=== PATIENT | female | born 1995 | race Two or more races ===

== ENCOUNTER 2020-06-01 21:18 | Emergency (ER) | payer OTHER, SELFPAY ==
[2020-06-01 21:35] VITALS: BP 111/71; PULSE 100; RESP 16; TEMP 37.7; O2SAT 100; BMI 19.5
[2020-06-01 22:00] VITALS: BP 117/62; PULSE 100; RESP 18; TEMP 36.4; O2SAT 100
[2020-06-01 22:20] LABS: COVID-19 Test Negative (Negative)
[2020-06-01] MEDS: Ketorolac Tromethamine 30 MG/ML VIAL IM (22:45)
--- NOTE | 2020-06-01 22:45 | ED.GENADULT ---
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 Reports was coughing so hard she bent over in threw back out, now with back spasming radiating to left side with left arm and leg spasming. Admits to similar symptoms in the past in which she received IM injection which resolved pain. Denies chest pain, shortness of breath, COVID-19 exposure, recent travel, direct back injury/trauma or fall, numbness, tingling, weakness, urinary incontinence/retention Related Data Previous Rx's Medication Instructions Recorded acetaminophen [Tylenol Extra 500 mg PO Q6H PRN #20 tab 06/01/20 Strength] cyclobenzaprine 5 mg PO Q8H PRN 5 Days #14 tab 06/01/20 lidocaine [Lidoderm] 1 patch TOPICAL DAILY PRN #30 ea 06/01/20 MDD remove after 12 hours naproxen 500 mg PO BID PRN 10 Days #20 tab 06/01/20 Allergies Allergy/AdvReac Type Severity Reaction Status Date / Time No Known Allergies Allergy Unverified 11/16/19 19:33 [No Known Allergies*] Review of Systems Review of Systems: Constitutional: No Fever, No Chills Cardiovascular: No Chest Pain, No SOB Respiratory: + Cough, No Sputum, No Wheezing Gastrointestinal: No Nausea, No Vomiting, No Diarrhea, No Abdominal pain Genitourinary: No Urinary Incontinence/retention Musculoskeletal: + back pain, + Myalgias, + Joint Swelling Skin: No Skin Lesions, No rash Neuro: No Weakness, No Numbness, No Paresthesias Yes all other systems are reviewed and are negative Neurologic: Denies Sensory deficit (Neuro) [facility] Past Medical History Attestation statement: The following information was validated with the patient. Social History Social History Advance Directives: No Physical Exam Vital Signs: Vital Signs: Last Vital Signs Temp 97.6 F 06/01/20 22:00 Pulse 100 06/01/20 22:00 Resp 18 06/01/20 22:00 BP 117/62 06/01/20 22:00 Pulse Ox 100 06/01/20 22:00 Body Mass Index 19.5 Const: General: cooperative and healthy appearing Orientation/consciousness: patient oriented x3 Limitations: no limitations HENMT: Head: Yes normal to inspection Ears: hearing grossly normal bilaterally General nose exam: Normal external nose present Face and sinus: Yes normal facial exam Eyes: General: appearance normal, both eyes and all related structures EOM: EOMs intact bilaterally Neck: Neck: Yes normal visual inspection Resp: Effort & Inspection: normal respiratory effort Cardio: Rate: regular rate GI: Inspection: Yes normal to inspection Palpation (GI): Soft to palpation, nontender, no guarding and not rigid Back/Spine/Pelvis: Other: No midline thoracic/lumbar spinous tenderness or step-off. + left-sided thoracic and lumbar MSK tenderness to palpation. Skin: Rashes: no rashes Wounds: no wounds Neuro: Other: Diffuse muscle tenderness to palpation to left elbow and thigh, reproducing subjective complaint. No appreciable weakness. No saddle anesthesia. 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 Reports was coughing so hard she bent over in threw back out, now with back spasming radiating to left side with left arm and leg spasming. On exam VSS, NAD/nontoxic-appearing, physical exam as above. Left-sided muscle spasming elicited and reproducible, no midline spinous tenderness or red flag symptoms, no saddle anesthesia. Likely MSK pain/strain. R/o viral syndrome/COVID-19. Unlikely cauda equina/cord compression, pneumonia, ACS, or CVA/metabolic abnormalities Patient requesting IM Toradol injection Lab Data Labs: Lab Results 06/01/20 Range/Units 21:59 COVID-19 ([facility]) Negative (Negative) COVID-19 Clin Com See Note Discharge Plan Discharge Clinical Impression: Low back pain Patient Disposition: Home, Self-Care Instructions: Acute Low Back Pain (ED) Additional Instructions: Your COVID-19 was negative Follow up with her doctor Your pain is likely musculoskeletal Flexeril is a muscle relaxer, take at night as it makes you drowsy, do not drive, drink alcohol, or operate machinery while taking it Naproxen as an anti-inflammatory / pain medication, take with food Lidoderm patches are numbing patches, apply to painful area In addition take Tylenol at home If symptoms persist or worsen, pain becomes unbearable, you developed urinary retention or incontinence, or weakness return to the ED Prescriptions: New acetaminophen [Tylenol Extra Strength] 500 mg tablet 500 mg PO Q6H PRN (Reason: pain or fever) Qty: 20 RF: 0 lidocaine [Lidoderm] 5 % adhesive patch,medicated 1 patch topical DAILY MDD remove after 12 hours PRN (Reason: pain) Qty: 30 RF: 0 naproxen 500 mg tablet 500 mg PO BID PRN (Reason: pain) 10 Days Qty: 20 RF: 0 cyclobenzaprine 5 mg tablet 5 mg PO Q8H PRN (Reason: pain (scale score 7-10)) 5 Days Qty: 14 RF: 0 Referrals: Physician,Unknown [Primary Care Provider] - 2 days Interventions: ED Discharge Assessment Last Done: 06/01/20 23:52 Discharge Date/Time: 06/01/20 23:54
--- NOTE | 2020-06-01 23:51 | PC.NURSE ---
pt is able to move her left side now. pain is lessening. pt is aox3 and feels ready for discharge.
== END 2020-06-01 23:54 | disposition home or self-care (01) ==
PROVIDERS: Emergency Provider Emergency Medicine
DX: M54.5 Low back pain (principal); R05 Cough; Z20.822 Contact with and (suspected) exposure to COVID-19
CPT/HCPCS: 36415; 87635; 96372; 99284; J1885

== ENCOUNTER 2023-01-06 08:37 | Emergency (ER) | payer SELFPAY ==
[2023-01-06 08:54] VITALS: BP 110/83; PULSE 97; RESP 16; TEMP 37.6; O2SAT 100; BMI 19.9
--- NOTE | 2023-01-06 10:56 | ED.BACK ---
HPI - Back Pain/Injury General Chief Complaint: Back Pain/Injury Stated Complaint: Pinched nerve? Back pain Time Seen by Provider: 01/06/23 10:14 History of Present Illness HPI Narrative: patient with history of chronic back pain complains of a flare similar to prior episodes of right-sided low back pain radiating to the right leg, similar to prior She denies any weakness, she is able to ambulate, she has no change to bowel or bladder no incontinence no dysuria, she has no chest pain no abdominal pain No fevers This is been going on for several days Related Data Previous Rx's Medication Instructions Recorded acetaminophen 500 mg tablet 500 mg PO Q6H PRN pain or fever 06/01/20 (Tylenol Extra Strength) #20 tabs cyclobenzaprine 5 mg tablet 5 mg PO Q8H PRN pain (scale score 06/01/20 7-10) 5 days #14 tabs lidocaine 5 % topical patch 1 patch topical DAILY PRN pain #30 06/01/20 (Lidoderm) ea naproxen 500 mg tablet 500 mg PO BID PRN pain 10 days #20 06/01/20 tabs acetaminophen 500 mg tablet 1,000 mg (2 x 500 mg) PO QID PRN 01/06/23 pain #30 tabs ibuprofen 600 mg tablet 600 mg PO Q6H PRN pain #20 tabs 01/06/23 prednisone 20 mg tablet 60 mg (3 x 20 mg) PO DAILY 4 days 01/06/23 #12 tabs Allergies Allergy/AdvReac Type Severity Reaction Status Date / Time No Known Allergies Allergy Unverified 01/06/23 08:54 [No Known Allergies*] [facility] Past Medical History Source: nursing notes reviewed Social History Social History Advance Directives: No Advance Directives Information Provided: No Physical Exam Vital Signs: Vital Signs: Last Vital Signs Temp 99.6 F 01/06/23 08:54 Pulse 97 01/06/23 08:54 Resp 16 01/06/23 08:54 BP 110/83 01/06/23 08:54 Pulse Ox 100 01/06/23 08:54 O2 Del Method Room Air 01/06/23 08:54 BMI result Body Mass Index 19.9 general appearance uncomfortable but no distress Head is normocephalic atraumatic Neck is supple no respiratory distress Abdomen is soft nontender The back had right lower lumbar and upper gluteal tenderness, skin in the area was normal no rash no redness no warmth, there is no focal bony tenderness no CVA tenderness, pain easily reproduced with movement Extremities full range of motion x4 Neuro no focal motor or sensory deficits Course Course Course Narrative: patient without evidence of cauda equina, no muscle weakness no loss of sensation no change to bowel or bladder no incontinence No fever Treated with Toradol, prednisone to possibly reduce inflammation around the nerve and given work note Medications Administered Discontinued Medications Generic Name Dose Route Start Last Admin Trade Name Freq PRN Reason Stop Dose Admin Ketorolac Tromethamine 30 mg 01/06/23 11:53 01/06/23 11:58 Ketorolac Tromethamine 30 Mg/Ml Vial IM 01/06/23 11:54 30 mg ONCE ONE Administration Discharge Plan Discharge Clinical Impression: Sciatica Patient Disposition: Home, Self-Care Additional Instructions: we are treating with prednisone which helps some patients with inflammation around the nerve shooting pain into the leg Otherwise Motrin and Tylenol as needed As you have had your back pain off and on for many years it may be a good idea to get a primary doctor who may do further workup to evaluate what is causing her back pain Chiropractor, acupuncture are sometimes helpful, physical therapy is sometimes helpful but will need a referral from primary doctor Return any time for any worse condition or any concerns Prescriptions: New acetaminophen 500 mg tablet 1,000 mg PO QID PRN (Reason: pain) Qty: 30 0RF ibuprofen 600 mg tablet 600 mg PO Q6H PRN (Reason: pain) Qty: 20 0RF prednisone 20 mg tablet 60 mg PO DAILY 4 Days Qty: 12 0RF No Action acetaminophen [Tylenol Extra Strength] 500 mg tablet 500 mg PO Q6H PRN (Reason: pain or fever) Qty: 20 0RF lidocaine [Lidoderm] 5 % adhesive patch,medicated 1 patch topical DAILY MDD remove after 12 hours PRN (Reason: pain) Qty: 30 0RF Rx Instructions: leave on most painful area for up to 12 hrs naproxen 500 mg tablet 500 mg PO BID PRN (Reason: pain) 10 Days Qty: 20 0RF cyclobenzaprine 5 mg tablet 5 mg PO Q8H PRN (Reason: pain (scale score 7-10)) 5 Days Qty: 14 0RF Stand Alone Forms: Work/School Release
--- NOTE | 2023-01-06 11:53 | ED_ITS ---
HPI - Back Pain/Injury General Chief Complaint: Back Pain/Injury Stated Complaint: Pinched nerve? Back pain Time Seen by Provider: 01/06/23 10:14 History of Present Illness HPI Narrative: patient complains of chronic back pain worse past 3 days without any significant injury, she has pain shooting down to below the knee in the right leg, there is no numbness or weakness, there is no change to bowel or bladder there is no dysuria no incontinence no frequency, there is no chest pain no abdominal pain no fever, patient is not immune compromise no IV drugs Related Data Previous Rx's Medication Instructions Recorded acetaminophen 500 mg tablet 500 mg PO Q6H PRN pain or fever 06/01/20 (Tylenol Extra Strength) #20 tabs cyclobenzaprine 5 mg tablet 5 mg PO Q8H PRN pain (scale score 06/01/20 7-10) 5 days #14 tabs lidocaine 5 % topical patch 1 patch topical DAILY PRN pain #30 06/01/20 (Lidoderm) ea naproxen 500 mg tablet 500 mg PO BID PRN pain 10 days #20 06/01/20 tabs acetaminophen 500 mg tablet 1,000 mg (2 x 500 mg) PO QID PRN 01/06/23 pain #30 tabs ibuprofen 600 mg tablet 600 mg PO Q6H PRN pain #20 tabs 01/06/23 prednisone 20 mg tablet 60 mg (3 x 20 mg) PO DAILY 4 days 01/06/23 #12 tabs Allergies Allergy/AdvReac Type Severity Reaction Status Date / Time No Known Allergies Allergy Unverified 01/06/23 08:54 [No Known Allergies*] [facility] Past Medical History Source: nursing notes reviewed Social History Social History Advance Directives: No Advance Directives Information Provided: No Physical Exam Vital Signs: Vital Signs: Last Vital Signs Temp 99.6 F 01/06/23 08:54 Pulse 97 01/06/23 08:54 Resp 16 01/06/23 08:54 BP 110/83 01/06/23 08:54 Pulse Ox 100 01/06/23 08:54 O2 Del Method Room Air 01/06/23 08:54 BMI result Body Mass Index 19.9 general appearance is no acute distress but uncomfortable Head is normocephalic atraumatic Neck is supple Respiratory no distress Abdomen soft nontender The back had right-sided lower lumbar upper gluteal tenderness, the skin of the area was normal, pain easily reproduced with movement, no focal bony tenderness Extremities range motion x4 Skin no rash Neuro no focal motor sensory deficits Course Course Course Narrative: patient with lumbar radiculopathy radiating down past the back of the knee with pain centered in L4-L5 area, there is no weakness there is no loss of sensation there is no lack of muscle strength no change to bowel or bladder no no evidence of cauda equina She is treated with steroid for possible reduction of inflammation around the nerve and given a dose of Toradol with some relief and is discharged home Medications Administered Discontinued Medications Generic Name Dose Route Start Last Admin Trade Name Freq PRN Reason Stop Dose Admin Acetaminophen 975 mg 01/06/23 11:59 01/06/23 12:04 Acetaminophen 325 Mg Tablet PO 01/06/23 12:00 975 mg ONCE ONE Administration Ketorolac Tromethamine 30 mg 01/06/23 11:53 01/06/23 11:58 Ketorolac Tromethamine 30 Mg/Ml Vial IM 01/06/23 11:54 30 mg ONCE ONE Administration Prednisone 60 mg 01/06/23 11:59 01/06/23 12:06 Prednisone 20 Mg Tablet PO 01/06/23 12:00 60 mg ONCE ONE Administration Discharge Plan Discharge Clinical Impression: Sciatica Patient Disposition: Home, Self-Care Additional Instructions: we are treating with prednisone which helps some patients with inflammation elbert und the nerve shooting pain into the leg Otherwise Motrin and Tylenol as needed As you have had your back pain off and on for many years it may be a good idea to get a primary doctor who may do further workup to evaluate what is causing her back pain Chiropractor, acupuncture are sometimes helpful, physical therapy is sometimes helpful but will need a referral from primary doctor Return any time for any worse condition or any concerns Prescriptions: New acetaminophen 500 mg tablet 1,000 mg PO QID PRN (Reason: pain) Qty: 30 0RF ibuprofen 600 mg tablet 600 mg PO Q6H PRN (Reason: pain) Qty: 20 0RF prednisone 20 mg tablet 60 mg PO DAILY 4 Days Qty: 12 0RF No Action acetaminophen [Tylenol Extra Strength] 500 mg tablet 500 mg PO Q6H PRN (Reason: pain or fever) Qty: 20 0RF lidocaine [Lidoderm] 5 % adhesive patch,medicated 1 patch topical DAILY MDD remove after 12 hours PRN (Reason: pain) Qty: 30 0RF Rx Instructions: leave on most painful area for up to 12 hrs naproxen 500 mg tablet 500 mg PO BID PRN (Reason: pain) 10 Days Qty: 20 0RF cyclobenzaprine 5 mg tablet 5 mg PO Q8H PRN (Reason: pain (scale score 7-10)) 5 Days Qty: 14 0RF Stand Alone Forms: Work/School Release Interventions: ED Discharge Assessment Last Done: 01/06/23 12:21 Discharge Date/Time: 01/06/23 12:21
[2023-01-06] MEDS: Ketorolac Tromethamine 30 MG/ML VIAL IM (11:58)
[2023-01-06] MEDS: Acetaminophen 325 MG TABLET 975 MG PO (12:04)
[2023-01-06] MEDS: predniSONE 20 MG TABLET 60 MG PO (12:06)
== END 2023-01-06 12:21 | disposition home or self-care (01) ==
PROVIDERS: Emergency Provider Student in an Organized Health Care Education/Training Program
DX: M54.42 Lumbago with sciatica, left side (principal); M54.41 Lumbago with sciatica, right side; Z79.899 Other long term (current) drug therapy
CPT/HCPCS: 96372; 99283; 99284; J1885